=== PATIENT | female | born 1970 | race Caucasian/White ===

== ENCOUNTER 2017-05-20 20:01 | Emergency (ER) | payer SELFPAY ==
[~2017-05-20] VITALS: Ht 157.5 cm; Wt 68.5 kg
[~2017-05-20 20:01] MED LIST: CEPH500 PO; Diflucan150 MG PO; Norco 10-325 T1 EACH PO; Zofran Odt4 MG SL
== END 2017-05-20 21:00 | disposition home or self-care (01) ==
LOC: ER 20:01
DX: S63.502A Unspecified sprain of left wrist, initial encounter (principal); F17.200 Nicotine dependence, unspecified, uncomplicated; W00.0XXA Fall on same level due to ice and snow, initial encounter
CPT/HCPCS: 29125; 73110; 99283; L3917

== ENCOUNTER 2020-06-24 19:56 | Emergency (ER) | payer OTHER ==
[~2020-06-24] VITALS: Ht 157.5 cm; Wt 83.9 kg
[2020-06-25] MEDS ORDERED: Norco 5-325 Ta1 EACH PO (01:10)
[2020-06-25] MEDS ORDERED: ONDA4 PO (01:10)
== END 2020-06-25 01:30 | disposition home or self-care (01) ==
LOC: ER 19:56
DX: S52.501A Unspecified fracture of the lower end of right radius, initial encounter for closed fracture (principal); F17.200 Nicotine dependence, unspecified, uncomplicated; Z23 Encounter for immunization; W01.0XXA Fall on same level from slipping, tripping and stumbling without subsequent striking against object, initial encounter
CPT/HCPCS: 25605; 73090; 73100; 73110; 90471; 90714; 99283-25; A9270

== ENCOUNTER 2020-07-01 08:51 | Day surgery (SDC) | payer OTHER ==
[~2020-07-01] VITALS: Ht 157.5 cm; Wt 83.3 kg
[~2020-07-01 08:51] MED LIST changes: +Norco 5-325 Ta1 EACH PO; +ONDA4 PO
== END 2020-07-01 13:20 | disposition home or self-care (01) ==
LOC: ORSCSDS 08:51
PROVIDERS: Orthopaedic Surgery
PROC: 0PSH04Z Reposition Right Radius with Internal Fixation Device, Open Approach (ICD-10-PCS; principal; 2020-07-01 13:45)
DX: S52.571A Other intraarticular fracture of lower end of right radius, initial encounter for closed fracture (principal); F17.210 Nicotine dependence, cigarettes, uncomplicated; E66.9 Obesity, unspecified; Z68.33 Body mass index [BMI] 33.0-33.9, adult
CPT/HCPCS: A9270; C1713; J0690; J1100; J2250; J2405; J2704; J3010; J7120

== ENCOUNTER 2021-10-15 13:32 | Emergency (ER) | payer OTHER ==
[~2021-10-15] VITALS: Ht 157.5 cm; Wt 77.1 kg
[2021-10-15] MEDS ORDERED: Robaxin750 MG PO (14:15)
== END 2021-10-15 14:10 | disposition home or self-care (01) ==
LOC: ER 13:32
DX: S46.812A Strain of other muscles, fascia and tendons at shoulder and upper arm level, left arm, initial encounter (principal); Z87.891 Personal history of nicotine dependence; Z79.899 Other long term (current) drug therapy; X58.XXXA Exposure to other specified factors, initial encounter
CPT/HCPCS: 99282